=== PATIENT | female | born 1965 | race Caucasian/White ===

== ENCOUNTER 2019-07-20 15:13 | Observation (INO) ==
[2019-07-20] MEDS ORDERED: Aspirin 325 MG TABLET PO ONE (15:40)
[2019-07-20] MEDS ORDERED: 0.9 % Sodium Chloride 1,000 ML IVC ONE (15:40)
[2019-07-20 15:49] LABS: Basophils % 0.2 %; Eosinophils # 0.2 K/mcL (0.0-0.6); Eosinophils % 1.7 %; Hematocrit 39.3 % (35.3-44.9); Hemoglobin 13.3 g/dL (11.5-15.4); Immature Granulocytes % 0.3 % (0-4); Lymphocytes % 32.7 %; Mean Corpuscular HGB Conc 33.8 g/dL (31.6-35.5); Mean Corpuscular Hemoglobin 30.4 pg (28.0-33.3); Mean Corpuscular Volume 89.9 fL (83.0-100.0); Mean Platelet Volume 9.8 fL (9.4-12.4); Monocytes # 0.9 K/mcL (0.0-1.3); Monocytes % 9.2 %; Neutrophils # 5.1 K/mcL (1.6-8.9); Platelet Count 299 K/mcL (140-400); Red Blood Count 4.37 M/mcL (3.82-4.97); Red Cell Distribution Width 11.6 % (11.5-14.5); Segmented Neutrophils % 55.9 %; White Blood Count 9.2 K/mcL (4.3-11.1)
[2019-07-20 16:32] LABS: Alanine Aminotransferase 9 Units/L (7-52); Albumin 3.9 g/dL (3.5-5.7); Albumin/Globulin Ratio 1.7 (1.1-2.2); Alkaline Phosphatase 65 Units/L (34-104); Aspartate Amino Transferase 12 Units/L (13-39); BUN/Creatinine Ratio 25 (6-26); Bilirubin,Direct 0.1 mg/dL (0.0-0.2); Bilirubin,Indirect 0.2 mg/dL (0.0-1.0); Bilirubin,Total 0.3 mg/dL (0.3-1.0); Blood Urea Nitrogen 15 mg/dL (6-20); Calcium 8.9 mg/dL (8.6-10.3); Carbon Dioxide 26 mEq/L (23-29); Chloride 103 mEq/L (98-107); Globulin 2.3 g/dL (2.4-3.5); Glucose 117 mg/dL (70-105); Osmolality,Calculated 288 (280-300); Sodium 138 mEq/L (136-145); Total Protein 6.2 g/dL (6.4-8.9); Troponin I < 0.03 ng/mL (< 0.04); eGFR For African Americans > 60 (> 60); eGFR For Non-African Americans > 60 (> 60)
[2019-07-20] MEDS ORDERED: *HR* Promethazine 25 MG/ML VIAL IVP PRN (17:09)
[2019-07-20] MEDS ORDERED: Ondansetron 4 MG/2 ML VIAL IVP PRN (17:09)
[2019-07-20] MEDS ORDERED: traMADol 50 MG TABLET PO PRN (17:09)
[2019-07-20] MEDS ORDERED: Acetaminophen 325 MG TABLET PO PRN (17:09)
[2019-07-20] MEDS ORDERED: MOM Conc 10 ML UD.LIQ PO PRN (17:09)
[2019-07-20] MEDS ORDERED: Naloxone 0.4 MG/ML INJ IVP PRN (17:09)
[2019-07-20] MEDS ORDERED: Mag Hydrox/Al Hydrox/Simeth 30 ML UDC PO PRN (17:09)
[2019-07-20] MEDS: Nitroglycerin 0.4 MG TAB.SUBL SL SCH (19:10)
[2019-07-20] MEDS: *HR* Heparin 5,000 UNIT/ML VIAL SQ SCH (19:52)
[2019-07-21 03:30] VITALS: BP 95/59
[2019-07-21] MEDS: *HR* Heparin 5,000 UNIT/ML VIAL SQ SCH (05:26)
[2019-07-21 07:00] LABS: Basophils % 0.1 %; Eosinophils # 0.1 K/mcL (0.0-0.6); Hemoglobin 13.6 g/dL (11.5-15.4); Immature Granulocytes % 0.3 % (0-4); Lymphocytes # 2.7 K/mcL (0.6-4.6); Lymphocytes % 38.3 %; Mean Corpuscular Hemoglobin 30.6 pg (28.0-33.3); Mean Corpuscular Volume 89.9 fL (83.0-100.0); Mean Platelet Volume 10.1 fL (9.4-12.4); Monocytes # 0.7 K/mcL (0.0-1.3); Monocytes % 9.4 %; Neutrophils # 3.5 K/mcL (1.6-8.9); Platelet Count 283 K/mcL (140-400); Red Blood Count 4.45 M/mcL (3.82-4.97); Red Cell Distribution Width 11.8 % (11.5-14.5); Segmented Neutrophils % 49.9 %; White Blood Count 7.1 K/mcL (4.3-11.1)
[2019-07-21 07:24] LABS: BUN/Creatinine Ratio 25 (6-26); Blood Urea Nitrogen 14 mg/dL (6-20); Calcium 8.7 mg/dL (8.6-10.3); Carbon Dioxide 26 mEq/L (23-29); Chloride 107 mEq/L (98-107); Cholesterol 209 mg/dL (< 200); Glucose 85 mg/dL (70-105); HDL Cholesterol 70 mg/dL (40-59); LDL Cholesterol,Calculated 115 mg/dL (0-99); Magnesium 1.8 mg/dL (1.6-2.6); Osmolality,Calculated 292 (280-300); Sodium 141 mEq/L (136-145); Triglycerides 119 mg/dL (< 150); eGFR For African Americans > 60 (> 60); eGFR For Non-African Americans > 60 (> 60)
[2019-07-21] MEDS ORDERED: Aspirin Enteric Coated 81 MG Tablet PO SCH (09:00)
== END 2019-07-21 10:48 | disposition home or self-care (01) ==
LOC: EMEROOARM 15:13 → 3BNU 15:13 → MERGE 17:31 → 3BNU 17:57
PROVIDERS: ADMIT Internal Medicine; ATTEND Internal Medicine